=== PATIENT | male | born 1970 | race Caucasian/White ===

== ENCOUNTER 2018-03-13 13:12 | Emergency (ER) | payer OTHER ==
[~2018-03-13] VITALS: Ht 185.4 cm; Wt 83.9 kg
[~2018-03-13 13:12] MED LIST: ADVIL LIQUI-GE200 MG PO; AMITRIPTYLINE H50 MG PO; OMEPRAZOLE20 MG PO; SENNA8.6 MG PO
--- OUTSIDE RECORDS SUMMARY | 2018-03-13 13:18 | XMS ---
PreManage Notification: EMERALD VACA Security Coke Handling Supervisor Events 1 event(s) in the past 18 months Most recent security events: Elopement at [facility] 11/10/2017 17:27 - Patient eloped before treatment completed. Details: LWBS CRITERIA MET - Group Notification - [facility] - 2 Visits in 30 Days CARE PROVIDERS DEWAYNE BAIRD Current PHONE: [phone] JOHNSON MESSER Current PHONE: Unknown DEWAYNE BAIRD Primary Care Current PHONE: Unknown Heidi has no Care Guidelines for this patient. E.D. VISIT COUNT (12 MO.) [address] [place] [address] [facility] TOTAL 5 NOTE: Visits indicate total known visits. ED/UCC VISIT TRACKING (12 MO.) 03/13/2018 13:13 R[facility]DA [place] TYPE: Emergency COMPLAINT: - L FINGER LAC/INJURY 02/22/2018 12:33 [facility] [place] TYPE: Emergency COMPLAINT: - CHEST PAIN DIAGNOSES: - Adverse effect of amphetamines, initial encounter - Personal history of other infectious and parasitic diseases - Nicotine dependence, unspecified, uncomplicated - Chest pain, unspecified - Allergy status to penicillin 11/11/2017 04:03 [facility] [place] TYPE: Emergency COMPLAINT: - FEET PAIN/INJURY DIAGNOSES: - Pain in right foot - Allergy status to penicillin - Contusion of left foot, initial encounter - Activity, other involving climbing, rappelling and jumping off - Exposure to other specified factors, initial encounter - Contusion of right foot, initial encounter - Other manager terminal (current) drug therapy 11/10/2017 17:27 RICARDA Trevino TYPE: Emergency COMPLAINT: - BILATERAL HEEL/FEET PAIN DIAGNOSES: - Pain in left ankle and joints of left foot - Procedure and treatment not carried out due to patient leaving prior to being seen by health care provider - Encounter for immunization 05/10/2017 12:47 [facility] [place] [facility] TYPE: Urgent Care DIAGNOSES: - Cellulitis of right upper limb - Hand Swelling 03/28/2017 12:50 [facility] [place] TYPE: Emergency COMPLAINT: - L LEG CELLULITIS DIAGNOSES: - Cellulitis of left lower limb - Nicotine dependence, unspecified, uncomplicated INPATIENT VISIT TRACKING (12 MO.) No inpatient visits to display in this time frame [id number]
[2018-03-13] MEDS ORDERED: REMERON45 M1 PO (13:39)
== END 2018-03-13 14:35 | disposition home or self-care (01) ==
LOC: ED 13:12
PROC: 0HQGXZZ Repair Left Hand Skin, External Approach (ICD-10-PCS; principal; 2018-03-13)
DX: S61.211A Laceration without foreign body of left index finger without damage to nail, initial encounter (principal); W26.8XXA Contact with other sharp object(s), not elsewhere classified, initial encounter; Z87.891 Personal history of nicotine dependence; Z88.0 Allergy status to penicillin; Z79.899 Other long term (current) drug therapy
CPT/HCPCS: 12001; 90471; 90715; 99282-25

== ENCOUNTER 2019-07-02 13:45 | Emergency (ER) | payer SELFPAY ==
[~2019-07-02] VITALS: Ht 185.4 cm; Wt 77.1 kg
--- OUTSIDE RECORDS SUMMARY | ~2019-07-02 | XMS | Encounter Summary ---
Demographics + + + | Address | [address] | | | [place] [place] [address] | + + + | Home Phone | | + + + | Preferred Language | Unknown | + + + | Marital Status | Single | + + + | Sikhism Affiliation | Unknown | + + + | Race | Unknown | + + + | Ethnic Group | Unknown | + + + Author + + + | Author | [facility] | | | and [place] | + + + | Organization | [facility] | | | and [place] | + + + | Address | Unknown | + + + | Phone | Unavailable | + + + Support +---------+ +---------+ + | Name | Relationship | Address | Phone | +---------+ +---------+ + | Name No | ECON | Unknown | | +---------+ +---------+ + Care Team Providers + +------+ + | Care Bookkeeping Assistant Name | Role | Phone | + +------+ + PCP | Unavailable | + +------+ + Encounter Details +--------+ + + + + | Date | Type | Department | Care Team | Description | +--------+ + + + + | 04/25/ | [facility] | [facility] | Katya Ho | | | 2007 | Encounter | MED CTR XRAY [address] | MD Lashaun [address] | | | | | [place] | [address] [place] | | | | | [place] [address] | [place] [address] | | | | | [phone] | [phone] | | | | | | | | +--------+ + + + + Social History + +-------+ +--------+------+ | Tobacco Use | Types | Packs/Day | Years | Date | | | | | Used | | + +-------+ +--------+------+ | Never Assessed | | | | | + +-------+ +--------+------+ + + + | Sex Assigned at | Date Recorded | | | | + + + | Not on file | | + + + + + + + | Job Start Date | Occupation | Industry | + + + + | Not on file | Not on file | Not on file | + + + + + + + + | Travel History | Travel Start | Travel End | + + + + + + | No recent travel history available. | + + documented as of this encounter Plan of Treatment Not on filedocumented as of this encounter Visit Diagnoses Not on filedocumented in this encounter"
--- OUTSIDE RECORDS SUMMARY | ~2019-07-02 | XMS | Encounter Summary ---
Demographics + + + | Address | [address] | | | [place] [facility] [address] | + + + | Home Phone | | + + + | Preferred Language | Unknown | + + + | Marital Status | Single | + + + | Mandaen Affiliation | Unknown | + + + | Race | Unknown | + + + | Ethnic Group | Unknown | + + + Author + + + | Author | [facility] | | | and [place] | + + + | Organization | [facility] | | | [...] Team Providers + +------+ + | Care Harness And Bag Inspector Name | Role | Phone | + +------+ + PCP | Unavailable | + +------+ + Encounter Details +--------+ + + + + | Date | Type | Department | Care Team | Description | +--------+ + + + + | 03/27/ | Hospital | [facility] | Jensen [place] | | | 1991 | Encounter | MED CTR EMERGENCY | MD Júnior, [address] | | | | | CENTER [address] | [place] | | | | | [place] | [place] [address] | | | | | [address] | [phone] | | | | | [phone] | | | +--------+ + + + [...]
--- OUTSIDE RECORDS SUMMARY | ~2019-07-02 | XMS | Encounter Summary ---
Demographics + + + | Address | [address] | | | [place] [place] [address] | + + + | Home Phone | | + + + | Preferred Language | Unknown | + + + | Marital Status | Single | + + + | Mormonism Affiliation | Unknown | + + + | Race | Unknown | + + + | Ethnic Group | Unknown | + + + Author + + + | Author | [facility] | | | and [place] | + + + | Organization | [facility] | | | [...] Team Providers + +------+ + | Care Retail Account Specialist Name | Role | Phone | + +------+ + PCP | Unavailable | + +------+ + Encounter Details +--------+ + + + + | Date | Type | Department | Care Team | Description | +--------+ + + + + | 07/19/ | Hospital | [facility] | B[place]y [place] | | | 2007 | Encounter | MED CTR EMERGENCY | MD Sindi King | | | | | CENTER [address] | [place], | | | | | [place] | [place] [address] | | | | | [address] | [phone] | | | | | [phone] | | | +--------+ + + + [...]
--- OUTSIDE RECORDS SUMMARY | ~2019-07-02 | XMS | Encounter Summary ---
Demographics + + + | Address | [address] | | | [place] [facility] [address] | + + + | Home Phone | | + + + | Preferred Language | Unknown | + + + | Marital Status | Single | + + + | Anabaptist Affiliation | Unknown | + + + | Race | Unknown | + + + | Ethnic Group | Unknown | + + + Author + + + | Author | [facility] | | | and [place] | + + + | Organization | [facility] | | | and [...] Team Providers + +------+ + | Care After School Teacher Name | Role | Phone | + +------+ + PCP | Unavailable | + +------+ + Encounter Details +--------+ + + + + | Date | Type | Department | Care Team | Description | +--------+ + + + + | 12/07/ | [facility] | [facility] | Matthew Ho | | | 2004 | Encounter | MED CTR XRAY [address] | MD [address] | | | | | [place] | [place] | | | | | [place] [address] | [place] [address] | | | | | [phone] | [phone] | | | | | | | [...]
--- OUTSIDE RECORDS SUMMARY | ~2019-07-02 | XMS | Clinical Summary ---
Demographics + + + | Address | [address] | | | [place] [address] | + + + | Home Phone | | + + + | Preferred Language | Unknown | + + + | Marital Status | Single | + + + | Denominational Affiliation | Unknown | + + + | Race | Unknown | + + + | Ethnic Group | Unknown | + + + Author + + + | Author | [facility] | | | and [place] | + + + | Organization | [facility] | | | [...] Team Providers + +------+ + | Care Plastic Tile Layer Name | Role | Phone | + +------+ + | No, Physician | PCP | Unavailable | + +------+ + Allergies + + + + + + | Active Allergy | Reactions | Severity | Noted | Comments | | | | | Date | | + + + + + + | Amoxicillin | Hives | | 05/11/19 | | | | | | 18 | | + + + + + + Medications + + + +---------+------+------+-------+ | Medication | Sig | Dispensed | Refills | Star | End | Statu | | | | | | t | Date | s | | | | | | Date | | | + + + +---------+------+------+-------+ | amitriptyline | Take 200 mg by mouth | | 0 | | | Activ | | (ELAVIL) 100 MG | nightly. | | | | | e | | tablet | | | | | | | + + + +---------+------+------+-------+ | naproxen | Take 1 one tablet | 30 | 0 | 03/0 | | Activ | | (NAPROSYN) 500 mg | with food twice | tablet | | 7/20 | | e | | tabletIndications: | daily for 5 days, | | | 18 | | | | Cellulitis of right | then as needed for | | | | | | | hand | pain. | | | | | | + + + +---------+------+------+-------+ | traMADol (ULTRAM) | Take 1 tablet by | 12 | 0 | 03/0 | | Activ | | 50 mg | mouth every 8 hours | tablet | | 7/20 | | e | | tabletIndications: | as needed. | | | 18 | | | | Cellulitis of right | | | | | | | | hand | | | | | | | + + + +---------+------+------+-------+ Active Problems No known active problems Social History + +-------+ +--------+------+ | Tobacco Use | Types | Packs/Day | Years | Date | | | | | Used | | + +-------+ +--------+------+ | Current Every Day | | | | | | Smoker | | | | | + +-------+ +--------+------+ + +---+---+---+ | Smokeless Tobacco: | | | | | Never Used | | | | + +---+---+---+ + + + | Sex Assigned at [...] recent travel history available. | + + Last Filed Vital Signs + + + + + | Vital Sign | Reading | Time Taken | Comments | + + + + + | Blood Pressure | 124/84 | 05/10/2017 1:11 PM | | | | | PST | | + + + + + | Pulse | 103 | 05/10/2017 1:11 PM | | | | | PST | | + + + + + | Temperature | 36.3 C (97.4 F) | 05/10/2017 1:11 PM | | | | | PST | | + + + + + | Respiratory Rate | 16 | 05/10/2017 1:11 PM | | | | | PST | | + + + + + | Oxygen Saturation | 99% | 05/10/2017 1:11 PM | | | | | PST | | + + + + + | Inhaled Oxygen | - | - | | | Concentration | | | | + + + + + | Weight | 87.3 kg (192 lb 7.4 | 05/10/2017 1:11 PM | | | | oz) | PST | | + + + + + | Height | 185.4 cm (6' 1") | 05/10/2017 1:11 PM | | | | | PST | | + + + + + | Body Mass Index | 25.39 | 05/10/2017 1:11 PM | | | | | PST | | + + + + + Plan of Treatment + + + + + | Health Maintenance | Due Date | Last Done | Comments | + + + + + | Vaccine: | | | | | Dtap/Tdap/Td (1 - | 2 | | | | Tdap) | | | | + + + + + | Vaccine: Influenza | | | | | (Season Ended) | 0 | | | + + + + + Results Not on filefrom Last 3 Months Insurance + +--------+ +--------+ +---------+--------+ | Payer | Benefi | Subscriber | Effect | Phone | Address | Type | | | t Plan | ID | arun | | | | | | / | | Dates | | | | | | Group | | | | | | + +--------+ +--------+ +---------+--------+ | [employer] | [employer] | [id number] | 05/11/19 | [phone] | | Medica | | MEDICAID HMO | HEALTH | | 18-Pre | 1 | | id | | | MDCD | | sent | | | | | | [place]MO [place] | | | | | | + +--------+ +--------+ +---------+--------+ + +--------+ +--------+ + + | Guarantor Name | Accoun | Relation to | Date | Phone | Billing Address | | | t Type | Patient | of | | | | | | | | | | + +--------+ +--------+ + + | Mikel Kirby | Person | Self | [birth year] | [address] | | | al/Fam | | 1971 | [phone] | [place] [address] | | | dirk | | | 5 (Home) | | + +--------+ +--------+ + + Advance Directives + + + + + | Type | Date Recorded | Patient | Explanation | | | | Soda Clerk | | + + + + + | Power of | | | | | Shore Working Supervisor | | | | + + + + + | Advance | | | | | Directive | | | | + + + + +
--- OUTSIDE RECORDS SUMMARY | ~2019-07-02 | XMS | Encounter Summary ---
Demographics + + + | Address | [address] | | | [place] [address] | + + + | Home Phone | | + + + | Preferred Language | Unknown | + + + | Marital Status | Single | + + + | Gnosticism Affiliation | Unknown | + + + | Race | Unknown | + + + | Ethnic Group | Unknown | + + + Author + + + | Author | [facility] | | | and [place] | + + + | Organization | [facility] | | | and [...] Team Providers + +------+ + | Care Consulting Property Manager Name | Role | Phone | + +------+ + PCP | Unavailable | + +------+ + Encounter Details +--------+ + + + + | Date | Type | Department | Care Team | Description | +--------+ + + + + | 04/25/ | [facility] | [facility] | Katya Ho | | | 2007 | Encounter | MED CTR XRAY [address] | MD Lashaun [address] | | | | | [place] | [address] [place] | | | | | [place] [address] | [place] [address] | | | | | [phone] | [phone] | | | | | | | [...]
--- OUTSIDE RECORDS SUMMARY | ~2019-07-02 | XMS | Clinical Summary ---
Demographics + + + | Address | [address] | | | [place] [address] | + + + | Home Phone | | + + + | Preferred Language | Unknown | + + + | Marital Status | Single | + + + | Pentecostal Affiliation | Unknown | + + + | Race | Unknown | + + + | Ethnic Group | Unknown | + + + Author + + + | Author | [facility] | | | and [place] | + + + | Organization | [facility] | | | and [...] Team Providers + +------+ + | Care Well Logging Mud Analysis Captain Name | Role | Phone | + [...] | [employer] | MODA | [id number] | 05/11/19 | [phone] | | Medica [...] | 1971 | [phone] | [place] [address] | | | dirk | | | 5 (Home) | | + +--------+ +--------+ + + Advance Directives + + + + + | Type | Date Recorded | Patient | Explanation | | | | Reversing Mill Roller | | + + + + + | Power of | | | | | Equity Director | | | | + + + + + | Advance | | | | | Directive | | | | + + + + +
--- OUTSIDE RECORDS SUMMARY | ~2019-07-02 | XMS | Encounter Summary ---
Demographics + + + | Address | [address] | | | [place] [place] [place] [address] | + + + | Home Phone | | + + + | Preferred Language | Unknown | + + + | Marital Status | Single | + + + | Scientology Affiliation | Unknown | + + + | Race | Unknown | + + + | Ethnic Group | Unknown | + + + Author + + + | Author | [facility] | | | and [place] | + + + | Organization | [facility] | | [...] Team Providers + +------+ + | Care Lotus Notes Administrator Name | Role | Phone | + +------+ + PCP | Unavailable | + +------+ + Encounter Details +--------+ + + + + | Date | Type | Department | Care Team | Description | +--------+ + + + + | 11/11/ | Hospital | [facility] | | | | 1990 | Encounter | MED CTR EMERGENCY | | | | | | CENTER [address] | | | | | | [place] | | | | | | [address] | | | | | | [phone] | | | +--------+ + + + [...]
--- OUTSIDE RECORDS SUMMARY | ~2019-07-02 | XMS | Encounter Summary ---
Demographics + + + | Address | [address] | | | [place] [place] [facility] [address] | + + + | Home Phone | | + + + | Preferred Language | Unknown | + + + | Marital Status | Single | + + + | Yazidism Affiliation | Unknown | + + + | Race | Unknown | + + + | Ethnic Group | Unknown | + + + Author + + + | Author | [facility] | | | and [place] | + + + | Organization | [facility] | | | and [...] Team Providers + +------+ + | Care Assembly Inspector Name | Role | Phone | + +------+ + PCP | Unavailable | + +------+ + Encounter Details +--------+ + + + + | Date | Type | Department | Care Team | Description | +--------+ + + + + | 11/03/ | Hospital | [facility] | | | | 2005 | Encounter | MED CTR XRAY [address] | | | | | | [place] | | | | | | [place] [address] | | | | | | [phone] | | | +--------+ + + + [...]
--- OUTSIDE RECORDS SUMMARY | ~2019-07-02 | XMS | Encounter Summary ---
Demographics + + + | Address | [address] | | | [place] [facility] [place] [address] | + + + | Home Phone | | + + + | Preferred Language | Unknown | + + + | Marital Status | Single | + + + | Buddhist Affiliation | Unknown | + + + [...] Team Providers + +------+ + | Care Cosmetologist Apprentice Name | Role | Phone | + +------+ + PCP | Unavailable | + +------+ + Encounter Details +--------+ + + + + | Date | Type | Department | Care Team | Description | +--------+ + + + + | 06/26/ | [facility] | [facility] | Paul Cummins | | | 2006 | Encounter | MED CTR EMERGENCY | MD [address] | | | | | CENTER [address] | [place] | | | | | [place] | [place] [address] | | | | | [address] | [phone] | | | | | [phone] | | | +--------+ + + + [...]
--- OUTSIDE RECORDS SUMMARY | ~2019-07-02 | XMS | Encounter Summary ---
Demographics + + + | Address | [address] | | | [place] [address] | + + + | Home Phone | | + + + | Preferred Language | Unknown | + + + | Marital Status | Single | + + + | Confucianist Affiliation | Unknown | + + + [...] Team Providers + +------+ + | Care Caustic Mixer Name | Role | Phone | + +------+ + PCP | Unavailable | + +------+ + Encounter Details +--------+ + + + + | Date | Type | Department | Care Team | Description | +--------+ + + + + | 02/03/ | [facility] | [facility] | Mattehw Ho | | | 2004 | Encounter | MED CTR XRAY [address] | [address] | | | | | [place] | [place] | | | | | [place] [address] | [place] [address] | | | | | [phone] | [phone] | | | | | | | [...]
--- OUTSIDE RECORDS SUMMARY | ~2019-07-02 | XMS | Encounter Summary ---
Demographics + + + | Address | [address] | | | [place] [address] | + + + | Home Phone | | + + + | Preferred Language | Unknown | + + + | Marital Status | Single | + + + | Jain Affiliation | Unknown | + + + | Race | Unknown | + + + | Ethnic Group | Unknown | + + + Author + + + | Author | [facility] | | | and [place] | + + + | Organization | [facility] | | [...] Team Providers + +------+ + | Care Liberal Arts Teacher Name | Role | Phone | + +------+ + PCP | Unavailable | + +------+ + Encounter Details +--------+ + + + + | Date | Type | Department | Care Team | Description | +--------+ + + + + | 11/11/ | Hospital | [facility] | | | | 1990 | Encounter | MED CTR EMERGENCY | | | | | | CENTER [address] | | | | | | [place] | | | | | | [address] | | | | | | [phone] | | | +--------+ + + + [...]
--- OUTSIDE RECORDS SUMMARY | ~2019-07-02 | XMS | Encounter Summary ---
Demographics + + + | Address | [address] | | | [place] [address] | + + + | Home Phone | | + + + | Preferred Language | Unknown | + + + | Marital Status | Single | + + + | Christian Affiliation | Unknown | + + + | Race | Unknown | + + + | Ethnic Group | Unknown | + + + Author + + + | Author | [facility] | | | and [place] | + + + | Organization | [facility] | | | [...] Team Providers + +------+ + | Care Aircraft Skin Burnisher Name | Role | Phone | + +------+ + PCP | Unavailable | + +------+ + Encounter Details +--------+ + + + + | Date | Type | Department | Care Team | Description | +--------+ + + + + | 08/02/ | Hospital | [facility] | | | | 2007 | Encounter | MED CTR EMERGENCY | | | | | | CENTER [address] | | | | | | [place] | | | | | | [address] | | | | | | [phone] | | | +--------+ + + + [...]
--- OUTSIDE RECORDS SUMMARY | ~2019-07-02 | XMS | Encounter Summary ---
Demographics + + + | Address | [address] | | | [place] [place] [address] | + + + | Home Phone | | + + + | Preferred Language | Unknown | + + + | Marital Status | Single | + + + | Baptist Affiliation | Unknown | + + + | Race | Unknown | + + + | Ethnic Group | Unknown | + + + Author + + + | Author | [facility] | | | and [place] | + + + | Organization | [facility] | | | [...] Team Providers + +------+ + | Care Human Resources Receptionist Name | Role | Phone | + [...] + + | 05/10/ | Office | [facility] | Fabien Dawn | Cellulitis of right | | 2018 | Visit | CARE [address] | MD Sixto [address] | hand (Primary Dx) | | | | [place] | [address] | | | | | [address] | [address] | | | | | [phone] | | | +--------+---------+ + + + [...] or wheezing, stop Keflex and report to [facility] emergency room. Take Naprosyn 500 mg, [...] 2 days on antibiotics Date Last Reviewed: 11/05/201519990345-9884 [employer]. [address] [place] [address]. All righ ts reserved. This information is [...] Pt tolerated well. Paula Ennis RN Kane, Jsutine Hensno MD - 05/10/2017 12:45 PM PSTFormatting of [...] or wheezing, stop Keflex and report to [facility] emergency room. Take Naprosyn 500 mg, [...] The note may have been dictated using [employer] voice recognition software. It may have not [...] starting 3 days ago. 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 He [...]
--- OUTSIDE RECORDS SUMMARY | ~2019-07-02 | XMS | Encounter Summary ---
Demographics + + + | Address | [address] | | | [place] [facility] [address] | + + + | Home Phone [...] Author + + + | Author | [facility] | | | and [place] | + + + | Organization | [facility] | | | and [...] Team Providers + +------+ + | Care Food Clerk Name | Role | Phone | + +------+ + PCP | Unavailable | + +------+ + Encounter Details +--------+ + + + + | Date | Type | Department | Care Team | Description | +--------+ + + + + | 06/26/ | [facility] | [facility] | Paul Cummins | | | 2006 | Encounter | MED CTR EMERGENCY | MD [address] | | | | | CENTER [address] | [place] | | | | | [place] | [place] [address] | | | | | [address] | [phone] | | | | | [phone] | | | +--------+ + + + [...]
--- OUTSIDE RECORDS SUMMARY | ~2019-07-02 | XMS | Encounter Summary ---
Demographics + + + | Address | [address] | | | [place] [address] | + + + | Home Phone | | + + + | Preferred Language | Unknown | + + + | Marital Status | Single | + + + | Anabaptism Affiliation | Unknown | + + + | Race | Unknown | + + + | Ethnic Group | Unknown | + + + Author + + + | Author | [facility] | | | and [place] | + + + | Organization | [facility] | | [...] Team Providers + +------+ + | Care High Court Justice Name | Role | Phone | + +------+ + PCP | Unavailable | + +------+ + Encounter Details +--------+ + + + + | Date | Type | Department | Care Team | Description | +--------+ + + + + | 08/02/ | Hospital | [facility] | | | | 2007 | Encounter | MED CTR EMERGENCY | | | | | | CENTER [address] | | | | | | [place] | | | | | | [address] | | | | | | [phone] | | | +--------+ + + + [...]
--- OUTSIDE RECORDS SUMMARY | ~2019-07-02 | XMS | Encounter Summary ---
Demographics + + + | Address | [address] | | | [place] [address] | + + + | Home Phone | | + + + | Preferred Language | Unknown | + + + | Marital Status | Single | + + + | Orthodox Affiliation | Unknown | + + [...] Team Providers + +------+ + | Care Vending Machine Refiller Name | Role | Phone | + +------+ + PCP | Unavailable | + +------+ + Encounter Details +--------+ + + + + | Date | Type | Department | Care Team | Description | +--------+ + + + + | 09/04/ | Hospital | [facility] | Betsy Middleton | | | 2007 | Encounter | MED CTR EMERGENCY | MD Sindi King | | | | | CENTER [address] | [place], | | | | | [place] | [place] [address] | | | | | [address] | [phone] | | | | | [phone] | | | +--------+ + + + [...]
--- OUTSIDE RECORDS SUMMARY | ~2019-07-02 | XMS | Encounter Summary ---
Demographics + + + | Address | [address] | | | [place] [address] | + + + | Home Phone | | + + + | Preferred Language | Unknown | + + + | Marital Status | Single | + + + | Rastafari Affiliation | Unknown | + + + | Race | Unknown | + + + | Ethnic Group | Unknown | + + + Author + + + | Author | [facility] | | | and [place] | + + + | Organization | [facility] | | | and [place] | + + + | Address | Unknown | + + + | Phone | Unavailable | + + + Support +---------+ +---------+ + | Name | Relationship | Address | Phone | +---------+ +---------+ + | Name No | ECON | Unknown | | +---------+ +---------+ + Care Team Providers + +------+ + | Care Rn Testing Name | Role | Phone | + +------+ + PCP | Unavailable | + +------+ + Encounter Details +--------+ + + + + | Date | Type | Department | Care Team | Description | +--------+ + + + + | 11/15/ | Hospital | [facility] | [place], | | | 2007 | Encounter | MED CTR EMERGENCY | Chandler James MD [address] | | | | | CENTER [address] | [place] | | | | | [place] | [place] [address] | | | | | [address] | [phone] | | | | | [phone] | | | +--------+ + + + [...]
--- OUTSIDE RECORDS SUMMARY | ~2019-07-02 | XMS | Encounter Summary ---
Demographics + + + | Address | [address] | | | [place] [place] [address] | + + + | Home Phone | | + + + | Preferred Language | Unknown | + + + | Marital Status | Single | + + + | Rastafarian Affiliation | Unknown | + + + | Race | Unknown | + + + | Ethnic Group | Unknown | + + + Author + + + | Author | [facility] | | | and [place] | + + + | Organization | [facility] | | | [...] Team Providers + +------+ + | Care Dry Folder Cloth Name | Role | Phone | + +------+ + PCP | Unavailable | + +------+ + Encounter Details +--------+ + + + + | Date | Type | Department | Care Team | Description | +--------+ + + + + | 11/03/ | Hospital | [facility] | | | | 2005 | Encounter | MED CTR XRAY [address] | | | | | | [place] | | | | | | [place] [address] | | | | | | [phone] | | | +--------+ + + + [...]
--- OUTSIDE RECORDS SUMMARY | ~2019-07-02 | XMS | Encounter Summary ---
Demographics + + + | Address | [address] | | | [place] [facility] [place] [address] | + + + | Home Phone | | + + + | Preferred Language | Unknown | + + + | Marital Status | Single | + + + | Bahai Affiliation | Unknown | + + + | Race | Unknown | + + + | Ethnic Group | Unknown | + + + Author + + + | Author | [facility] | | | and [place] | + + + | Organization | [facility] | | [...] Team Providers + +------+ + | Care Maintenance Plumber Name | Role | Phone | + +------+ + PCP | Unavailable | + +------+ + Encounter Details +--------+ + + + + | Date | Type | Department | Care Team | Description | +--------+ + + + + | 02/03/ | [facility] | [facility] | Matthew Ho | | | 2004 | Encounter | MED CTR XRAY [address] | MD [address] | | | | | [place] | [place] | | | | | [place] [address] | [place] [id number] | | | | | [phone] | [phone] | | | | | | | [...]
--- OUTSIDE RECORDS SUMMARY | ~2019-07-02 | XMS | Encounter Summary ---
Demographics + + + | Address | [address] | | | [place] [facility] [place] [address] | + + + | Home Phone | | + + + | Preferred Language | Unknown | + + + | Marital Status | Single | + + + | Sabianism Affiliation | Unknown | + + + [...] Team Providers + +------+ + | Care Workshop Manager Name | Role | Phone | + +------+ + PCP | Unavailable | + +------+ + Encounter Details +--------+ + + + + | Date | Type | Department | Care Team | Description | +--------+ + + + + | 12/07/ | [facility] | [facility] | Matthew Ho | | | 2004 | Encounter | MED CTR XRAY [address] | MD [address] | | | | | [place] | [place] | | | | | [place] [address] | [place] [address] | | | | | [phone] | [phone] | | | | | | | [...]
--- OUTSIDE RECORDS SUMMARY | ~2019-07-02 | XMS | Encounter Summary ---
Demographics + + + | Address | [address] | | | [place] [place] [address] | + + + | Home Phone | | + + + | Preferred Language | Unknown | + + + | Marital Status | Single | + + + | Mu-Ism Affiliation | Unknown | + + + | Race | Unknown | + + + | Ethnic Group | Unknown | + + + Author + + + | Author | [facility] | | | and [place] | + + + | Organization | [facility] | | | [...] Providers + +------+ + | Care Retail Loan Officer Name | Role | Phone | + [...] + + | 05/10/ | Office | [facility] | Fabien Dawn | Cellulitis of right | | 2018 | Visit | CARE [address] | MD Sixto [address] | hand (Primary Dx) | | | | [place] | [address] [place] | | | | | [address] | [address] | | | | | [phone] | | | +--------+---------+ + + + [...] or wheezing, stop Keflex and report to [facility] emergency room. Take Naprosyn 500 mg, [...] 2 days on antibiotics Date Last Reviewed: 11/05/201519995963-2108 [employer]. [address] [place] [address]. All righ ts reserved. This information is [...] or wheezing, stop Keflex and report to [facility] emergency room. Take Naprosyn 500 mg, [...] The note may have been dictated using [employer] voice recognition software. It may have not [...] starting 3 days ago. 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 He [...]
--- OUTSIDE RECORDS SUMMARY | ~2019-07-02 | XMS | Encounter Summary ---
Demographics + + + | Address | [address] | | | [place] [place] [address] | + + + | Home Phone | | + + + | Preferred Language | Unknown | + + + | Marital Status | Single | + + + | Sabianist Affiliation | Unknown | + + + | Race | Unknown | + + + | Ethnic Group | Unknown | + + + Author + + + | Author | [facility] | | | and [place] | + + + | Organization | [facility] | | | [...] Team Providers + +------+ + | Care Land Economist Name | Role | Phone | + +------+ + PCP | Unavailable | + +------+ + Encounter Details +--------+ + + + + | Date | Type | Department | Care Team | Description | +--------+ + + + + | 02/16/ | Hospital | [facility] | Betsy Middleton | | | 2007 | Encounter | MED CTR EMERGENCY | MD Sindi King | | | | | CENTER [address] | [place], | | | | | [place] | [place] [address] | | | | | [address] | [phone] | | | | | [phone] | | | +--------+ + + + [...]
--- OUTSIDE RECORDS SUMMARY | ~2019-07-02 | XMS | Encounter Summary ---
Demographics + + + | Address | [address] | | | [place] [address] | + + + | Home Phone [...] + | Author | [facility] | | | and [place] | + + + | Organization | [facility] | | | and [...] Team Providers + +------+ + | Care Hot Air Furnace Installer And Repairer Name | Role | Phone | + +------+ + PCP | Unavailable | + +------+ + Encounter Details +--------+ + + + + | Date | Type | Department | Care Team | Description | +--------+ + + + + | 11/15/ | Hospital | [facility] | [place], | | | 2007 | Encounter | MED CTR EMERGENCY | Chandler James MD [address] | | | | | CENTER [address] | [place] | | | | | [place] | [place] [address] | | | | | [address] | [phone] | | | | | [phone] | | | +--------+ + + + [...]
--- OUTSIDE RECORDS SUMMARY | ~2019-07-02 | XMS | Encounter Summary ---
Demographics + + + | Address | [address] | | | [place] [address] | + + + | Home Phone | | + + + | Preferred Language | Unknown | + + + | Marital Status | Single | + + + | Alevism Affiliation | Unknown | + + + [...] Team Providers + +------+ + | Care Configuration Management Consultant Name | Role | Phone | + +------+ + PCP | Unavailable | + +------+ + Encounter Details +--------+ + + + + | Date | Type | Department | Care Team | Description | +--------+ + + + + | 09/04/ | Hospital | [facility] | Betsy Middleton | | | 2007 | Encounter | MED CTR EMERGENCY | MD Sindi King | | | | | CENTER [address] | [place], | | | | | [place] | [place] [address] | | | | | [address] | [phone] | | | | | [phone] | | | +--------+ + + + [...]
--- OUTSIDE RECORDS SUMMARY | ~2019-07-02 | XMS | Encounter Summary ---
Demographics + + + | Address | [address] | | | [place] [facility] [address] | + + + | Home Phone | | + + + | Preferred Language | Unknown | + + + | Marital Status | Single | + + + | Mandaeism Affiliation | Unknown | + + + [...] Team Providers + +------+ + | Care Driver Salesman Name | Role | Phone | + +------+ + PCP | Unavailable | + +------+ + Encounter Details +--------+ + + + + | Date | Type | Department | Care Team | Description | +--------+ + + + + | 02/16/ | Hospital | [facility] | Betsy Middleton | | | 2007 | Encounter | MED CTR EMERGENCY | MD Sindi King | | | | | CENTER [address] | [place], | | | | | [place] | [place] [address] | | | | | [address] | [phone] | | | | | [phone] | | | +--------+ + + + [...]
--- OUTSIDE RECORDS SUMMARY | ~2019-07-02 | XMS | Encounter Summary ---
Demographics + + + | Address | [address] | | | [place] [address] | + + + | Home Phone [...] + + + | Author | [facility] | | | and [place] | + + + | Organization | [facility] | | | and [...] Team Providers + +------+ + | Care Group Cio Name | Role | Phone | + +------+ + PCP | Unavailable | + +------+ + Encounter Details +--------+ + + + + | Date | Type | Department | Care Team | Description | +--------+ + + + + | 07/13/ | Hospital | [facility] | | | | 1992 | Encounter | MED CTR EMERGENCY | | | | | | CENTER [address] | | | | | | [place] | | | | | | [address] | | | | | | [phone] | | | +--------+ + + + [...]
--- OUTSIDE RECORDS SUMMARY | ~2019-07-02 | XMS | Encounter Summary ---
Demographics + + + | Address | [address] | | | [place] [facility] [facility] [address] | + + + | Home Phone | | + + + | Preferred Language | Unknown | + + + | Marital Status | Single | + + + | Worship Affiliation | Unknown | + + + [...] Team Providers + +------+ + | Care Director Of Industrial Relations Name | Role | Phone | + +------+ + PCP | Unavailable | + +------+ + Encounter Details +--------+ + + + + | Date | Type | Department | Care Team | Description | +--------+ + + + + | 07/19/ | Hospital | [facility] | Betsy Middleton | | | 2007 | Encounter | MED CTR EMERGENCY | MD Sindi King | | | | | CENTER [address] | [place], | | | | | [place] | [place] [address] | | | | | [address] | [phone] | | | | | [phone] | | | +--------+ + + + [...]
--- OUTSIDE RECORDS SUMMARY | ~2019-07-02 | XMS | Encounter Summary ---
Demographics + + + | Address | [address] | | | [place] [facility] [address] | + + + | Home Phone | | + + + | Preferred Language | Unknown | + + + | Marital Status | Single | + + + | Taoist Affiliation | Unknown | + + + | Race | Unknown | + + + | Ethnic Group | Unknown | + + + Author + + + | Author | [facility] | | | and [place] | + + + | Organization | [facility] | | [...] Team Providers + +------+ + | Care Crankshaft Balancer Name | Role | Phone | + +------+ + PCP | Unavailable | + +------+ + Encounter Details +--------+ + + + + | Date | Type | Department | Care Team | Description | +--------+ + + + + | 07/13/ | Hospital | [facility] | | | | 1992 | Encounter | MED CTR EMERGENCY | | | | | | CENTER [address] | | | | | | [place] | | | | | | [address] | | | | | | [phone] | | | +--------+ + + + [...]
--- OUTSIDE RECORDS SUMMARY | ~2019-07-02 | XMS | Encounter Summary ---
Demographics + + + | Address | [address] | | | [place] [address] | + + + | Home Phone | | + + + | Preferred Language | Unknown | + + + | Marital Status | Single | + + + | Holiness Affiliation | Unknown | + + + | Race | Unknown | + + + | Ethnic Group | Unknown | + + + Author + + + | Author | [facility] | | | and [place] | + + + | Organization | [facility] | | | [...] Team Providers + +------+ + | Care Hose Builder Name | Role | Phone | + +------+ + PCP | Unavailable | + +------+ + Encounter Details +--------+ + + + + | Date | Type | Department | Care Team | Description | +--------+ + + + + | 03/27/ | Hospital | [facility] | Jensen Wood | | | 1991 | Encounter | MED CTR EMERGENCY | MD Júnior[address] | | | | | CENTER [address] | [place] | | | | | [place] | [place] [address] | | | | | [address] | [phone] | | | | | [phone] | | | +--------+ + + + [...]
[~2019-07-02 13:45] MED LIST changes: +REMERON45 M1 PO
--- OUTSIDE RECORDS SUMMARY | 2019-07-02 13:48 | XMS ---
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 Care History Medical/Surgical 03/14/2018 [facility] - W CALLED PATIENT 2X LEFT A VOICEMAIL. - PATIENT NEEDS TO APPLY FOR MEDICAL BENEFITS- PLEASE CONTACT MARYAN EXT [phone] TO HAVE PATIENT APPLY FOR BENEFITS. - PATIENT DOES NOT HAVE A PCP - PLEASE REFER PATIENT TO [facility] FOR FOLLOW UP - TO ESTABLISH CARE. - W SENT NO PCP LETTER TO PATIENT. E.D. VISIT COUNT (12 MO.) 1 RICARDA Plata TOTAL 1 NOTE: Visits indicate total known visits. ED/UCC VISIT TRACKING (12 MO.) 07/02/2019 13:46 [facility]DA [place] TYPE: Emergency COMPLAINT: - RT FINGER INJURY INPATIENT VISIT TRACKING (12 MO.) No inpatient visits to display in this time frame [id number]
== END 2019-07-02 15:11 | disposition home or self-care (01) ==
LOC: ED 13:45
DX: S68.126A Partial traumatic metacarpophalangeal amputation of right little finger, initial encounter (principal); Z87.891 Personal history of nicotine dependence; Z88.1 Allergy status to other antibiotic agents; W45.8XXA Other foreign body or object entering through skin, initial encounter
CPT/HCPCS: 64450; 73140; 99283-25

== ENCOUNTER 2019-08-10 07:53 | Emergency (ER) | payer SELFPAY ==
[~2019-08-10] VITALS: Ht 185.4 cm; Wt 82.5 kg
--- OUTSIDE RECORDS SUMMARY | ~2019-08-10 | XMS | Encounter Summary ---
Demographics + + + | Address | [address] | | | [place] [address] | + + + | Home Phone | | + + + | Preferred Language | Unknown | + + + | Marital Status | Single | + + + | Hindu Affiliation | Unknown | + + + | Race | Unknown | + + + | Ethnic Group | Unknown | + + + Author + + + | Author | [facility] | | | and [place] | + + + | Organization | [facility] | | [...] Team Providers + +------+ + | Care Cognos Report Developer Name | Role | Phone | + +------+ + PCP | Unavailable | + +------+ + Encounter Details +--------+ + + + + | Date | Type | Department | Care Team | Description | +--------+ + + + + | 09/04/ | Hospital | [facility] | Betsy Middleton | | | 2007 | Encounter | MED CTR EMERGENCY | MD Sindi King | | | | | CENTER [address] | [place], | | | | | [place] | [place] [address] | | | | | [address] | [phone] | | | | | [phone] | | | +--------+ + + + [...]
--- OUTSIDE RECORDS SUMMARY | ~2019-08-10 | XMS | Encounter Summary ---
Demographics + + + | Address | [address] | | | [place] [address] | + + + | Home Phone | | + + + | Preferred Language | Unknown | + + + | Marital Status | Single | + + + | Voodoo Affiliation | Unknown | + + + | Race | Unknown | + + + | Ethnic Group | Unknown | + + + Author + + + | Author | [facility] | | | and [place] | + + + | Organization | [facility] | | | and [...] Team Providers + +------+ + | Care Hide Stretcher Hand Name | Role | Phone | + +------+ + PCP | Unavailable | + +------+ + Encounter Details +--------+ + + + + | Date | Type | Department | Care Team | Description | +--------+ + + + + | 07/13/ | Hospital | [facility] | | | | 1992 | Encounter | MED CTR EMERGENCY | | | | | | CENTER [address] | | | | | | [place] | | | | | | [address] | | | | | | [phone] | | | +--------+ + + + [...]
--- OUTSIDE RECORDS SUMMARY | ~2019-08-10 | XMS | Encounter Summary ---
Demographics + + + | Address | [address] | | | [place] [address] | + + + | Home Phone | | + + + | Preferred Language | Unknown | + + + | Marital Status | Single | + + + | Jehovah'S Witness Affiliation | Unknown | + + + | Race | Unknown | + + + | Ethnic Group | Unknown | + + + Author + + + | Author | [facility] | | | and [place] | + + + | Organization | [facility] | | | [...] Team Providers + +------+ + | Care Cabinet Assembler Name | Role | Phone | + +------+ + PCP | Unavailable | + +------+ + Encounter Details +--------+ + + + + | Date | Type | Department | Care Team | Description | +--------+ + + + + | 03/27/ | Hospital | [facility] | Jensen Wood | | | 1991 | Encounter | MED CTR EMERGENCY | MD Júnior, [address] | | | | | CENTER [address] | [place] | | | | | [place] | [place] [address] | | | | | [address] | [phone] | | | | | [phone] | | | +--------+ + + + [...]
--- OUTSIDE RECORDS SUMMARY | ~2019-08-10 | XMS | Encounter Summary ---
Demographics + + + | Address | [address] | | | [place] [address] | + + + | Home Phone | | + + + | Preferred Language | Unknown | + + + | Marital Status | Single | + + + | Druze Affiliation | Unknown | + + + [...] Team Providers + +------+ + | Care Arson Investigator Name | Role | Phone | + +------+ + PCP | Unavailable | + +------+ + Encounter Details +--------+ + + + + | Date | Type | Department | Care Team | Description | +--------+ + + + + | 04/25/ | [facility] | [facility] | Katya Ho | | | 2007 | Encounter | MED CTR XRAY [address] | MD [address] | | | | | [place] | [address] [place] | | | | | [place] [address] | [place] [address] | | | | | [phone] | [phone] | | | | | | | [...]
--- OUTSIDE RECORDS SUMMARY | ~2019-08-10 | XMS | Encounter Summary ---
Demographics + + + | Address | [address] | | | [place] [address] | + + + | Home Phone | | + + + | Preferred Language | Unknown | + + + | Marital Status | Single | + + + | Rastafari Affiliation | Unknown | + + + | Race | Unknown | + + + | Ethnic Group | Unknown | + + + Author + + + | Author | [facility] | | | and [place] | + + + | Organization | [facility] | | | [...] Team Providers + +------+ + | Care Records Management Engineer Name | Role | Phone | + +------+ + | No, Physician | PCP | Unavailable | + +------+ + Reason for Visit + + + | Reason | Comments | + + + | Hand Swelling | room 2/ right hand x 3 days | + + + Encounter Details +--------+---------+ + + + | Date | Type | Department | Care Team | Description | +--------+---------+ + + + | 05/10/ | Office | [facility] | Fabien Dawn | Cellulitis of right | | 2018 | Visit | CARE [address] | MD Sixto [address] | hand (Primary Dx) | | | | [place] | [place] [place] | | | | | [address] | [address] | | | | | [phone] | | | +--------+---------+ + + + Social History + +-------+ [...] + + documented as of this encounter Last Filed Vital Signs + + + [...] | | + + + + + documented in this encounter Patient Instructions Patient Instructions Fabien Dawn MD - 05/10/2017 12:45 PM PSTRocephin shot was pr ovided for infection. Take Keflex 500 mg 4 times daily for 10 days for skin infection. If you develop an itchy rash, hives, lip swelling or wheezing, stop Keflex and report to [facility] emergency room. Take Naprosyn 500 mg, 1 tablet with food twice daily for 5 days, then as needed for pain an d swelling. Take tramadol 50 mg, one tablet up to 3 times daily as needed for breakthrough pain. The right hand and arm above the level of your heart as needed for pain and swelling. Use warm, moist compresses on the hand and forearm for 15 minutes at a time 3 times daily u ntil improved. Stay home from work avoiding repetitive gripping, grasping and lifting with the right hand until symptoms have resolved. Return for reevaluation of your hand and forearm tomorrow. Report to emergency room if he developed progressive pain, redness, swelling, nausea, vomit ing or other new rapidly progressive associated symptoms. Cellulitis Cellulitis is an infection of the deep layers of skin. A break in the skin, such as a cut o r scratch, can let bacteria under the skin. If the bacteria get to deep layers of the skin, it can be serious. If not treated, cellulitis can get into the bloodstream and lymph nodes. The infection can then spread throughout the body. This causes serious illness. Cellulitis causes the affected skin to become red, swollen, warm, and sore. The reddened ar eas have a visible border. An open sore may leak fluid (pus). You may have a fever, chills, and pain. Cellulitis is treated with antibiotics taken for 7 to 10 days. An open sore may be cleaned and covered with cool wet gauze. Symptoms should get better 1 to 2 days after treatment is s tarted. Make sure to take all the antibiotics for the full number of days until they are jessica e. Keep taking the medicine even if your symptoms go away. Home care Follow these tips: Limit the use of the part of your body with cellulitis. If the infection is on your leg, keep your leg raised while sitting. This will help to r educe swelling. Take all of the antibiotic medicine exactly as directed until it is gone. Do not miss an y doses, especially during the first 7 days. Don t stop taking the medicine when your symp toms get better. Keep the affected area clean and dry. Wash your hands with soap and warm water before and after touching your skin. Anyone els e who touches your skin should also wash his or her hands. Don't share towels. Follow-up care Follow up with your healthcare provider, or as advised. If your infection does not go away on the first antibiotic, your healthcare provider will prescribe a different one. When to seek medical advice Call your healthcare provider right away if any of these occur: Red areas that spread Swelling or pain that gets worse Fluid leaking from the skin (pus) Fever higher of 100.4 F (38.0 C) or higher after 2 days on antibiotics Date Last Reviewed: 11/05/201519992609-8179 [employer]. [address] [place] [address]. All righ ts reserved. This information is not intended as a substitute for professional medical care. Always follow your healthcare professional's instructions. documented in this encounter Progress Notes Paula Ennis RN - 05/10/2017 12:45 PM PST Administrations This Visit cefTRIAXone (ROCEPHIN) injection 1 g Admin Date 05/10/2017 Action Given Dose 1 g Route Intramuscular Administered By Paula Ennis RN lidocaine 1% injection 2.1 mL Admin Date 05/10/2017 Action Given Dose 2.1 mL Route Intramuscular Administered By Paula Ennis RN Pt tolerated well. Paula Ennis RN Kane, Justine Henson MD - 05/10/2017 12:45 PM PSTFormatting of this note might be different from the origina l. 05/10/2017 Mikel Kirby 1970 Assessment: 1. Cellulitis of right hand cefTRIAXone (ROCEPHIN) injection 1 g lidocaine 1% injection 2.1 mL naproxen (NAPROSYN) 500 mg tablet traMADol (ULTRAM) 50 mg tablet cephalexin (KEFLEX) 500 mg capsule Three-day history of progressive cellulitis on the back of the right hand associated with m ultiple small abrasions on the hand, a new tattoo on the right forearm placed 10 days ago. No evidence of septic arthritis or systemic symptoms. He agrees with treatment with IM Roce phin after discussing the risks and benefits given his penicillin allergy. We discussed the option of starting oral clindamycin or waiting for intravenous dose of alternative antibiot ic. He opted for the Rocephin IM. He was given the following instructions, prescriptions a nd a note for work. Follow-up here tomorrow is anticipated. Plan: Rocephin shot was provided for infection. Take Keflex 500 mg 4 times daily for 10 days for skin infection. If you develop an itchy rash, hives, lip swelling or wheezing, stop Keflex and report to [facility] emergency room. Take Naprosyn 500 mg, 1 tablet with food twice daily for 5 days, then as needed for pain an d swelling. Take tramadol 50 mg, one tablet up to 3 times daily as needed for breakthrough pain. The right hand and arm above the level of your heart as needed for pain and swelling. Use warm, moist compresses on the hand and forearm for 15 minutes at a time 3 times daily u ntil improved. Stay home from work avoiding repetitive gripping, grasping and lifting with the right hand until symptoms have resolved. Return for reevaluation of your hand and forearm tomorrow. Report to emergency room if he developed progressive pain, redness, swelling, nausea, vomit ing or other new rapidly progressive associated symptoms. The risks and benefits, including potential side effects of medication changes, have been d iscussed with the patient. We agreed on implementing the current plan. The note may have been dictated using [employer] voice recognition software. It may have not b een proofread in entirety. Minor errors in grammar may occur. History: Chief Complaint Patient presents with Hand Swelling room 2/ right hand x 3 days Mikel Kirby is a 47 y.o. male here for painful redness and swelling on the back of h is right hand extending onto his forearm starting 3 days ago. 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 He had a tattoo placed on the vol ar aspect of his right forearm 10 days ago which has been without redness, swelling and drai nage. He had difficulty sleeping last night applying warm compress and elevating his arm. He went to work today and cannot due to pain with use of the hand and arm. Denies other inj ury to the right hand, no history of trauma. History of cellulitis of the left lower leg one month ago treated at [facility] with resolution, doesn't recall the antibiotic. He denies fever but feels intermittent chills. Mild nausea without vomiting. He has eaten to day with normal bowel movement. No history of diabetes mellitus or MRSA infection. Current medications, past medical, surgical, family and social histories were reviewed and updated where appropriate. Allergies Allergen Reactions Amoxicillin Hives Physical Exam: BP 124/84 | Pulse 103 | Temp 36.3 C (97.4 F) (Temporal) | Resp 16 | Ht 1.854 m (6' 1") | Wt 87.3 kg (192 lb 7.4 oz) | SpO2 99% | BMI 25.39 kg/m General: Well appearing, middle-aged male in no distress and appears stated age. Skin: Multiple, small, scabbed abrasions on multiple fingers and the back of his right hand . No pustules, fluctuance or purulent drainage. Fingers are callused. Diffusely erythemat ous, tender, warm and edematous skin on back of his hand without fluctuance or ecchymosis. Mild erythema extends onto the dorsal aspect of the wrist and forearm with several small fol licular pustules noted on the proximal forearm. Again, no fluctuance or drainage. New tatt oo noted on the proximal, volar forearm without inflammation or drainage. Musculoskeletal: Opens and closes the fist completely with minimal pain. Normal finger spl ay. Range of motion of the right wrist and elbow are complete with minimal discomfort. Lymphatic: Perhaps mild lymphangitis on the dorsum of the right forearm. No antecubital or axillary adenopathy. Neurovascular: Intact radial pulses. Light touch sensation and capillary refill intact thr oughout the right hand. Fabien Dawn M.D. documented in is encounter Plan of Treatment Not on filedocumented as of this encounter Visit Diagnoses + + | Diagnosis | + + | Cellulitis of right hand - Primary Cellulitis and abscess of hand, except fingers and | | thumb | + + documented in this encounter Administered Medications + +--------+ +------+------+ + | Medication Order | MAR | Action | Dose | Rate | Site | | | Action | Date | | | | + +--------+ +------+------+ + | cefTRIAXone (ROCEPHIN) | Given | 05/11/19 | 1 g | | Ventrogl | | injection 1 g 1 g, | | 18 2:15 | | | uteal-Le | | Intramuscular, ONCE, 05/10/17 | | PM PST | | | ft | | at 1430, For 1 dose, MIX WITH 2.1 | | | | | | | ML LIDOCAINE, Indications: | | | | | | | PURULENT SKIN AND SOFT TISSUE | | | | | | | INFECTION | | | | | | + +--------+ +------+------+ + +---+---+ | | | +---+---+ + +-------+ +---------+---+ + | lidocaine 1% injection 2.1 mL | Given | 05/11/19 | 2.1 mLs | | Ventrogl | | 2.1 mL, Intramuscular, ONCE, Wed | | 18 2:18 | | | uteal-Le | | 05/10/17 at 1430, For 1 dose | | PM PST | | | ft | + +-------+ +---------+---+ + +---+---+ | | | +---+---+ documented in this encounter
--- OUTSIDE RECORDS SUMMARY | ~2019-08-10 | XMS | Encounter Summary ---
Demographics + + + | Address | [address] | | | [place] [address] | + + + | Home Phone | | + + + | Preferred Language | Unknown | + + + | Marital Status | Single | + + + | Sabianist Affiliation | Unknown | + + + | Race | Unknown | + + + | Ethnic Group | Unknown | + + + Author + + + | Author | [facility] | | | and [place] | + + + | Organization | [facility] | | [...] Team Providers + +------+ + | Care Hedge Fund Trader Name | Role | Phone | + +------+ + PCP | Unavailable | + +------+ + Encounter Details +--------+ + + + + | Date | Type | Department | Care Team | Description | +--------+ + + + + | 03/27/ | Hospital | [facility] | Jensen Wood | | | 1991 | Encounter | MED CTR EMERGENCY | MD Júnior, FACS [address] | | | | | CENTER [address] | [place] | | | | | [place] | [place] [id number] | | | | | [address] | [phone] | | | | | [phone] | | | +--------+ + + + [...]
--- OUTSIDE RECORDS SUMMARY | ~2019-08-10 | XMS | Encounter Summary ---
Demographics + + + | Address | [address] | | | [place] [address] | + + + | Home Phone | | + + + | Preferred Language | Unknown | + + + | Marital Status | Single | + + + | Latter Day Affiliation | Unknown | + + + | Race | Unknown | + + + | Ethnic Group | Unknown | + + + Author + + + | Author | [facility] | | | and [place] | + + + | Organization | [facility] | | | [...] Team Providers + +------+ + | Care Certified Professional Coder Name | Role | Phone | + +------+ + PCP | Unavailable | + +------+ + Encounter Details +--------+ + + + + | Date | Type | Department | Care Team | Description | +--------+ + + + + | 04/25/ | [facility] | [facility] | Katya Ho | | | 2007 | Encounter | MED CTR XRAY [address] | MD Lashaun [address] | | | | | [place] | [address] [place] | | | | | [place] [address] | [place] [address] | | | | | [phone] | [phone] | | | | | | | [...]
--- OUTSIDE RECORDS SUMMARY | ~2019-08-10 | XMS | Encounter Summary ---
Demographics + + + | Address | [address] | | | [place] [address] | + + + | Home Phone | | + + + | Preferred Language | Unknown | + + + | Marital Status | Single | + + + | Samaritan Affiliation | Unknown | + + + | Race | Unknown | + + + | Ethnic Group | Unknown | + + + Author + + + | Author | [facility] | | | and [place] | + + + | Organization | [facility] | | | [...] Team Providers + +------+ + | Care Bung Sewer Name | Role | Phone | + +------+ + PCP | Unavailable | + +------+ + Encounter Details +--------+ + + + + | Date | Type | Department | Care Team | Description | +--------+ + + + + | 07/19/ | Hospital | [facility] | Betsy [place]leton | | | 2007 | Encounter | MED CTR EMERGENCY | MD Sindi King | | | | | CENTER [address] | [place], | | | | | [place] | [place] [address] | | | | | [address] | [phone] | | | | | [phone] | | | +--------+ + + + [...]
--- OUTSIDE RECORDS SUMMARY | ~2019-08-10 | XMS | Encounter Summary ---
Demographics + + + | Address | [address] | | | [place] [address] | + + + | Home Phone | | + + + | Preferred Language | Unknown | + + + | Marital Status | Single | + + + | Holiness Affiliation | Unknown | + + + | Race | Unknown | + + + | Ethnic Group | Unknown | + + + Author + + + | Author | [facility] | | | and [place] | + + + | Organization | [facility] | | | [...] Team Providers + +------+ + | Care Life Advisor Name | Role | Phone | + +------+ + PCP | Unavailable | + +------+ + Encounter Details +--------+ + + + + | Date | Type | Department | Care Team | Description | +--------+ + + + + | 07/19/ | Hospital | [facility] | Betsy [place]leton | | | 2007 | Encounter | MED CTR EMERGENCY | MD Sindi King | | | | | CENTER [address] | [place], | | | | | [place] | [place] [address] | | | | | [address] | [phone] | | | | | [phone] | | | +--------+ + + + [...]
--- OUTSIDE RECORDS SUMMARY | ~2019-08-10 | XMS | Encounter Summary ---
Demographics + + + | Address | [address] | | | [place] [address] | + + + | Home Phone | | + + + | Preferred Language | Unknown | + + + | Marital Status | Single | + + + | Congregational Affiliation | Unknown | + + + | Race | Unknown | + + + | Ethnic Group | Unknown | + + + Author + + + | Author | [facility] | | | and [place] | + + + | Organization | [facility] | | | and [...] Team Providers + +------+ + | Care Fern Gatherer Name | Role | Phone | + +------+ + PCP | Unavailable | + +------+ + Encounter Details +--------+ + + + + | Date | Type | Department | Care Team | Description | +--------+ + + + + | 12/07/ | [facility] | [facility] | Matthew Ho | | | 2004 | Encounter | MED CTR XRAY [address] | MD Chandler Need | | | | | [place] | updated address | | | | | [place] [address] | | | | | | [phone] | | | +--------+ + + + [...]
--- OUTSIDE RECORDS SUMMARY | ~2019-08-10 | XMS | Encounter Summary ---
Demographics + + + | Address | [address] | | | [place] [address] | + + + | Home Phone | | + + + | Preferred Language | Unknown | + + + | Marital Status | Single | + + + | Oriental Orthodox Affiliation | Unknown | + + + | Race | Unknown | + + + | Ethnic Group | Unknown | + + + Author + + + | Author | [facility] | | | and [place] | + + + | Organization | [facility] | | | [...] Team Providers + +------+ + | Care Extermination Inspector Name | Role | Phone | + +------+ + PCP | Unavailable | + +------+ + Encounter Details +--------+ + + + + | Date | Type | Department | Care Team | Description | +--------+ + + + + | 11/15/ | Hospital | [facility] | Soren, | | | 2007 | Encounter | MED CTR EMERGENCY | Chandler James MD [address] | | | | | CENTER [address] | [place] | | | | | [place] | [place] [address] | | | | | [address] | [phone] | | | | | [phone] | | | +--------+ + + + [...]
--- OUTSIDE RECORDS SUMMARY | ~2019-08-10 | XMS | Encounter Summary ---
Demographics + + + | Address | [address] | | | [place] [address] | + + + | Home Phone | | + + + | Preferred Language | Unknown | + + + | Marital Status | Single | + + + | Gnosticist Affiliation | Unknown | + + + | Race | Unknown | + + + | Ethnic Group | Unknown | + + + Author + + + | Author | [facility] | | | and [place] | + + + | Organization | [facility] | | [...] Team Providers + +------+ + | Care Therapeutic Dietitian Name | Role | Phone | + [...] + + | 05/10/ | Office | [facility] | Fabien Dawn | Cellulitis of right | | 2018 | Visit | CARE [address] | MD Sixto [address] | hand (Primary Dx) | | | | [place] | [place] | | | | | [address] | [address] | | | | | [phone] | | | +--------+---------+ + + + [...] or wheezing, stop Keflex and report to [facility] emergency room. Take Naprosyn 500 mg, [...] 2 days on antibiotics Date Last Reviewed: 11/05/201519997768-0997 [employer]. [address] [place] [address]. All righ ts reserved. This information is [...] or wheezing, stop Keflex and report to [facility] emergency room. Take Naprosyn 500 mg, [...] The note may have been dictated using [employer] voice recognition software. It may have not [...] starting 3 days ago. 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 He [...]
--- OUTSIDE RECORDS SUMMARY | ~2019-08-10 | XMS | Encounter Summary ---
Demographics + + + | Address | [address] | | | [place] [address] | + + + | Home Phone | | + + + | Preferred Language | Unknown | + + + | Marital Status | Single | + + + | Adventist Affiliation | Unknown | + + + | Race | Unknown | + + + | Ethnic Group | Unknown | + + + Author + + + | Author | [facility] | | | and [place] | + + + | Organization | [facility] | | [...] Team Providers + +------+ + | Care Partner Name | Role | Phone | + +------+ + PCP | Unavailable | + +------+ + Encounter Details +--------+ + + + + | Date | Type | Department | Care Team | Description | +--------+ + + + + | 09/04/ | Hospital | [facility] | Betsy [place]leton | | | 2007 | Encounter | MED CTR EMERGENCY | MD Sindi King | | | | | CENTER [address] | [place], | | | | | [place] | [place] [address] | | | | | [address] | [phone] | | | | | [phone] | | | +--------+ + + + [...]
--- OUTSIDE RECORDS SUMMARY | ~2019-08-10 | XMS | Encounter Summary ---
Demographics + + + | Address | [address] | | | [place] [address] | + + + | Home Phone | | + + + | Preferred Language | Unknown | + + + | Marital Status | Single | + + + | Faith Affiliation | Unknown | + + + [...] Team Providers + +------+ + | Care Printed Circuit Boards Solder Leveler Name | Role | Phone | + +------+ + PCP | Unavailable | + +------+ + Encounter Details +--------+ + + + + | Date | Type | Department | Care Team | Description | +--------+ + + + + | 11/03/ | Hospital | [facility] | | | | 2005 | Encounter | MED CTR XRAY [address] | | | | | | [place] | | | | | | [place] [address] | | | | | | [phone] | | | +--------+ + + + [...]
--- OUTSIDE RECORDS SUMMARY | ~2019-08-10 | XMS | Encounter Summary ---
Demographics + + + | Address | [address] | | | [place] [address] | + + + | Home Phone | | + + + | Preferred Language | Unknown | + + + | Marital Status | Single | + + + | Restoration Affiliation | Unknown | + + + | Race | Unknown | + + + | Ethnic Group | Unknown | + + + Author + + + | Author | [facility] | | | and [place] | + + + | Organization | [facility] | | | and [...] Team Providers + +------+ + | Care Gage Designer Name | Role | Phone | + +------+ + PCP | Unavailable | + +------+ + Encounter Details +--------+ + + + + | Date | Type | Department | Care Team | Description | +--------+ + + + + | 11/03/ | Hospital | [facility] | | | | 2005 | Encounter | MED CTR XRAY [address] | | | | | | [place] | | | | | | [place] [address] | | | | | | [phone] | | | +--------+ + + + [...]
--- OUTSIDE RECORDS SUMMARY | ~2019-08-10 | XMS | Encounter Summary ---
Demographics + + + | Address | [address] | | | [place] [address] | + + + | Home Phone | | + + + | Preferred Language | Unknown | + + + | Marital Status | Single | + + + | Caodaism Affiliation | Unknown | + + + [...] Team Providers + +------+ + | Care Machine Assembler For Puller Over Name | Role | Phone | + +------+ + PCP | Unavailable | + +------+ + Encounter Details +--------+ + + + + | Date | Type | Department | Care Team | Description | +--------+ + + + + | 07/13/ | Hospital | [facility] | | | | 1992 | Encounter | MED CTR EMERGENCY | | | | | | CENTER [address] | | | | | | [place] | | | | | | [address] | | | | | | [phone] | | | +--------+ + + + [...]
--- OUTSIDE RECORDS SUMMARY | ~2019-08-10 | XMS | Clinical Summary ---
Demographics + + + | Address | [address] | | | [place] [address] | + + + | Home Phone | | + + + | Preferred Language | Unknown | + + + | Marital Status | Single | + + + | Latter-Day Affiliation | Unknown | + + + | Race | Unknown | + + + | Ethnic Group | Unknown | + + + Author + + + | Author | [facility] | | | and [place] | + + + | Organization | [facility] | | [...] Team Providers + +------+ + | Care Spooler Operator Automatic Name | Role | Phone | + [...] | [employer] | [facility] | [id number] | 05/11/19 | [phone] | | Medica [...] | 1971 | [phone] | [place] [address] | | | dirk | | | 5 (Home) | | + +--------+ +--------+ + + Advance Directives + + + + + | Type | Date Recorded | Patient | Explanation | | | | Wire Communications Engineer | | + + + + + | Power of | | | | | Abattoir Manager | | | | + + + + + | Advance | | | | | Directive | | | | + + + + +
--- OUTSIDE RECORDS SUMMARY | ~2019-08-10 | XMS | Encounter Summary ---
Demographics + + + | Address | [address] | | | [place] [address] | + + + | Home Phone | | + + + | Preferred Language | Unknown | + + + | Marital Status | Single | + + + | Adventism Affiliation | Unknown | + + + | Race | Unknown | + + + | Ethnic Group | Unknown | + + + Author + + + | Author | [facility] | | | and [place] | + + + | Organization | [facility] | | | and [...] Team Providers + +------+ + | Care Method Consultant Name | Role | Phone | + +------+ + PCP | Unavailable | + +------+ + Encounter Details +--------+ + + + + | Date | Type | Department | Care Team | Description | +--------+ + + + + | 08/02/ | Hospital | [facility] | | | | 2007 | Encounter | MED CTR EMERGENCY | | | | | | CENTER [address] | | | | | | [place] | | | | | | [address] | | | | | | [phone] | | | +--------+ + + + [...]
--- OUTSIDE RECORDS SUMMARY | ~2019-08-10 | XMS | Encounter Summary ---
Demographics + + + | Address | [address] | | | [place] [address] | + + + | Home Phone | | + + + | Preferred Language | Unknown | + + + | Marital Status | Single | + + + | Advent Affiliation | Unknown | + + + [...] Team Providers + +------+ + | Care Apartment House Manager Name | Role | Phone | + +------+ + PCP | Unavailable | + +------+ + Encounter Details +--------+ + + + + | Date | Type | Department | Care Team | Description | +--------+ + + + + | 02/16/ | Hospital | [facility] | [facility]etsy [place] | | | 2007 | Encounter | MED CTR EMERGENCY | MD Sindi King | | | | | CENTER [address] | [place], | | | | | [place] | [place] [address] | | | | | [address] | [phone] | | | | | [phone] | | | +--------+ + + + [...]
--- OUTSIDE RECORDS SUMMARY | ~2019-08-10 | XMS | Clinical Summary ---
Demographics + + + | Address | [address] | | | [place] [address] | + + + | Home Phone | | + + + | Preferred Language | Unknown | + + + | Marital Status | Single | + + + | Gnosticist Affiliation | Unknown | + + + | Race | Unknown | + + + | Ethnic Group | Unknown | + + + Author + + + | Author | [facility] | | | and [place] | + + + | Organization | [facility] | | [...] Team Providers + +------+ + | Care Steam Powerplant Supervisor Name | Role | Phone | + [...] | [facility] [facility] | [facility] | [id number] | 05/11/19 | [phone] | | Medica [...] | 1971 | [phone] | [place] [address] | | | dirk | | | 5 (Home) | | + +--------+ +--------+ + + Advance Directives + + + + + | Type | Date Recorded | Patient | Explanation | | | | 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
--- OUTSIDE RECORDS SUMMARY | ~2019-08-10 | XMS | Encounter Summary ---
Demographics + + + | Address | [address] | | | [place] [address] | + + + | Home Phone | | + + + | Preferred Language | Unknown | + + + | Marital Status | Single | + + + | Baptist Affiliation | Unknown | + + + | Race | Unknown | + + + | Ethnic Group | Unknown | + + + Author + + + | Author | [facility] | | | and [place] | + + + | Organization | [facility] | | | and [...] Team Providers + +------+ + | Care It Security Specialist Name | Role | Phone | + +------+ + PCP | Unavailable | + +------+ + Encounter Details +--------+ + + + + | Date | Type | Department | Care Team | Description | +--------+ + + + + | 06/26/ | [facility] | [facility] | Paul Cummins | | | 2006 | Encounter | MED CTR EMERGENCY | MD [address] | | | | | CENTER [address] | [place] | | | | | [place] | [place] [address] | | | | | [address] | [phone] | | | | | [phone] | | | +--------+ + + + [...]
--- OUTSIDE RECORDS SUMMARY | ~2019-08-10 | XMS | Encounter Summary ---
Demographics + + + | Address | [address] | | | [place] [address] | + + + | Home Phone | | + + + | Preferred Language | Unknown | + + + | Marital Status | Single | + + + | Christianity Affiliation | Unknown | + + + | Race | Unknown | + + + | Ethnic Group | Unknown | + + + Author + + + | Author | [facility] | | | and [place] | + + + | Organization | [facility] | | | [...] Providers + +------+ + | Care Food Service Hotel Runner Name | Role | Phone | + +------+ + PCP | Unavailable | + +------+ + Encounter Details +--------+ + + + + | Date | Type | Department | Care Team | Description | +--------+ + + + + | 02/03/ | [facility] | [facility] | Matthew Ho | | | 2004 | Encounter | MED CTR XRAY [address] | [address] [place] | | | | | [place] | updated address | | | | | [place] [address] | | | | | | [phone] | | | +--------+ + + + [...]
--- OUTSIDE RECORDS SUMMARY | ~2019-08-10 | XMS | Encounter Summary ---
Demographics + + + | Address | [address] | | | [place] [address] | + + + | Home Phone | | + + + | Preferred Language | Unknown | + + + | Marital Status | Single | + + + | Baptist Affiliation | Unknown | + + + | Race | Unknown | + + + | Ethnic Group | Unknown | + + + Author + + + | Author | [facility] | | | and [place] | + + + | Organization | [facility] | | [...] Team Providers + +------+ + | Care Regulatory Affairs Consultant Name | Role | Phone | + +------+ + PCP | Unavailable | + +------+ + Encounter Details +--------+ + + + + | Date | Type | Department | Care Team | Description | +--------+ + + + + | 11/15/ | Hospital | [facility] | [place], | | | 2007 | Encounter | MED CTR EMERGENCY | Chandler James MD [address] | | | | | CENTER [address] | [place] | | | | | [place] | [place] [address] | | | | | [address] | [phone] | | | | | [phone] | | | +--------+ + + + [...]
--- OUTSIDE RECORDS SUMMARY | ~2019-08-10 | XMS | Encounter Summary ---
Demographics + + + | Address | [address] | | | [place] [address] | + + + | Home Phone | | + + + | Preferred Language | Unknown | + + + | Marital Status | Single | + + + | Jew Affiliation | Unknown | + + + | Race | Unknown | + + + | Ethnic Group | Unknown | + + + Author + + + | Author | [facility] | | | and [place] | + + + | Organization | [facility] | | | [...] Team Providers + +------+ + | Care Sales And Service Technician Name | Role | Phone | + +------+ + PCP | Unavailable | + +------+ + Encounter Details +--------+ + + + + | Date | Type | Department | Care Team | Description | +--------+ + + + + | 08/02/ | Hospital | [facility] | | | | 2007 | Encounter | MED CTR EMERGENCY | | | | | | CENTER [address] | | | | | | [place] | | | | | | [address] | | | | | | [phone] | | | +--------+ + + + [...]
--- OUTSIDE RECORDS SUMMARY | ~2019-08-10 | XMS | Encounter Summary ---
Demographics + + + | Address | [address] | | | [place] [address] | + + + | Home Phone | | + + + | Preferred Language | Unknown | + + + | Marital Status | Single | + + + | Yarsani Affiliation | Unknown | + + + | Race | Unknown | + + + | Ethnic Group | Unknown | + + + Author + + + | Author | [facility] | | | and [place] | + + + | Organization | [facility] | | | [...] Team Providers + +------+ + | Care Broker Associate Name | Role | Phone | + +------+ + PCP | Unavailable | + +------+ + Encounter Details +--------+ + + + + | Date | Type | Department | Care Team | Description | +--------+ + + + + | 12/07/ | [facility] | [facility] | Matthew Ho | | | 2004 | Encounter | MED CTR XRAY [address] | [address] | | | | | [place] | updated address | | | | | [place] [address] | | | | | | [phone] | | | +--------+ + + + [...]
--- OUTSIDE RECORDS SUMMARY | ~2019-08-10 | XMS | Encounter Summary ---
Demographics + + + | Address | [address] | | | [place] [address] | + + + | Home Phone | | + + + | Preferred Language | Unknown | + + + | Marital Status | Single | + + + | Cheondoism Affiliation | Unknown | + + + | Race | Unknown | + + + | Ethnic Group | Unknown | + + + Author + + + | Author | [facility] | | | and [place] | + + + | Organization | [facility] | | | and [...] Providers + +------+ + | Care Sales Correspondent Name | Role | Phone | + +------+ + PCP | Unavailable | + +------+ + Encounter Details +--------+ + + + + | Date | Type | Department | Care Team | Description | +--------+ + + + + | 02/03/ | [facility] | [facility] | Matthew Ho | | | 2004 | Encounter | MED CTR XRAY [address] | [address] | | | | | [place] | updated address | | | | | [place] [address] | | | | | | [phone] | | | +--------+ + + + [...]
--- OUTSIDE RECORDS SUMMARY | ~2019-08-10 | XMS | Encounter Summary ---
Demographics + + + | Address | [address] | | | [place] [address] | + + + | Home Phone [...] Team Providers + +------+ + | Care Oyster Farmer Name | Role | Phone | + +------+ + PCP | Unavailable | + +------+ + Encounter Details +--------+ + + + + | Date | Type | Department | Care Team | Description | +--------+ + + + + | 11/11/ | Hospital | [facility] | | | | 1990 | Encounter | MED CTR EMERGENCY | | | | | | CENTER [address] | | | | | | [place] | | | | | | [address] | | | | | | [phone] | | | +--------+ + + + [...]
--- OUTSIDE RECORDS SUMMARY | ~2019-08-10 | XMS | Encounter Summary ---
Demographics + + + | Address | [address] | | | [place] [address] | + + + | Home Phone [...] Author + + + | Author | [facility] | | | and [place] | + + + | Organization | [facility] | | | [...] Team Providers + +------+ + | Care Meat Boner Name | Role | Phone | + +------+ + PCP | Unavailable | + +------+ + Encounter Details +--------+ + + + + | Date | Type | Department | Care Team | Description | +--------+ + + + + | 11/11/ | Hospital | [facility] | | | | 1990 | Encounter | MED CTR EMERGENCY | | | | | | CENTER [address] | | | | | | [place] | | | | | | [address] | | | | | | [phone] | | | +--------+ + + + [...]
--- OUTSIDE RECORDS SUMMARY | ~2019-08-10 | XMS | Encounter Summary ---
Demographics + + + | Address | [address] | | | [place] [address] | + + + | Home Phone | | + + + | Preferred Language | Unknown | + + + | Marital Status | Single | + + + | Christian Affiliation | Unknown | + + + | Race | Unknown | + + + | Ethnic Group | Unknown | + + + Author + + + | Author | [facility] | | | and [place] | + + + | Organization | [facility] | | | [...] Team Providers + +------+ + | Care Vp Genetic Name | Role | Phone | + +------+ + PCP | Unavailable | + +------+ + Encounter Details +--------+ + + + + | Date | Type | Department | Care Team | Description | +--------+ + + + + | 02/16/ | Hospital | [facility] | Betsy [place]leton | | | 2007 | Encounter | MED CTR EMERGENCY | MD Sindi King | | | | | CENTER [address] | [place], | | | | | [place] | [place] [address] | | | | | [address] | [phone] | | | | | [phone] | | | +--------+ + + + [...]
--- OUTSIDE RECORDS SUMMARY | ~2019-08-10 | XMS | Encounter Summary ---
Demographics + + + | Address | [address] | | | [place] [address] | + + + | Home Phone | | + + + | Preferred Language | Unknown | + + + | Marital Status | Single | + + + | Orthodox Affiliation | Unknown | + + + | Race | Unknown | + + + | Ethnic Group | Unknown | + + + Author + + + | Author | [facility] | | | and [place] | + + + | Organization | [facility] | | | [...] Team Providers + +------+ + | Care Lyric Writer Name | Role | Phone | + +------+ + PCP | Unavailable | + +------+ + Encounter Details +--------+ + + + + | Date | Type | Department | Care Team | Description | +--------+ + + + + | 06/26/ | [facility] | [facility] | Paul Cummins | | | 2006 | Encounter | MED CTR EMERGENCY | MD [place] [address] | | | | | CENTER [address] | [place] | | | | | [place] | [place] [address] | | | | | [address] | [phone] | | | | | [phone] | | | +--------+ + + + [...]
--- OUTSIDE RECORDS SUMMARY | 2019-08-10 07:56 | XMS ---
PreManage Notification: EMERALD VACA Security Sanitor Events No recent Security Events currently on file CRITERIA MET - Group Notification - [facility] - Has Care Guidelines CARE PROVIDERS DEWAYNE BAIRD Physician Sample Shoe Inspector And Reworker Current PHONE: [phone] JOHNSON MESSER Physician Sample Shoe Inspector And Reworker Current PHONE: Unknown Heidi has no Care Guidelines for this patient. Care History Medical/Surgical 03/14/2018 [facility] - [facility] CALLED PATIENT 2X LEFT A VOICEMAIL. - PATIENT NEEDS TO APPLY FOR MEDICAL BENEFITS- PLEASE CONTACT MARYAN EXT [phone] TO HAVE PATIENT APPLY FOR BENEFITS. - PATIENT DOES NOT HAVE A PCP - PLEASE REFER PATIENT TO [facility] FOR FOLLOW UP - TO ESTABLISH CARE. - W SENT NO PCP LETTER TO PATIENT. E.D. VISIT COUNT (12 MO.) 2 RICARDA Plata TOTAL 2 NOTE: Visits indicate total known visits. 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
[2019-08-10] MEDS ORDERED: CLINDAMYCIN HC300 MG PO (09:03)
== END 2019-08-10 09:51 | disposition home or self-care (01) ==
LOC: ED 07:53
DX: L03.011 Cellulitis of right finger (principal); Z20.2 Contact with and (suspected) exposure to infections with a predominantly sexual mode of transmission; F17.200 Nicotine dependence, unspecified, uncomplicated; Z88.1 Allergy status to other antibiotic agents
CPT/HCPCS: 73140; 86592; 86703; 87491; 87591; 99283-25

== ENCOUNTER 2022-07-05 09:32 | Emergency (ER) | payer OTHER ==
[~2022-07-05] VITALS: Ht 185.4 cm; Wt 82.5 kg
[~2022-07-05 09:32] MED LIST changes: +CLINDAMYCIN HC300 MG PO
--- OUTSIDE RECORDS SUMMARY | 2022-07-05 09:38 | XMS ---
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 Care History Medical/Surgical 03/14/2018 [facility] - W CALLED PATIENT 2X LEFT A VOICEMAIL. - PATIENT NEEDS TO APPLY FOR MEDICAL BENEFITS- PLEASE CONTACT MARYAN EXT [phone] TO HAVE PATIENT APPLY FOR BENEFITS. - PATIENT DOES NOT HAVE A PCP - PLEASE REFER PATIENT TO [facility] FOR FOLLOW UP - TO ESTABLISH CARE. - [facility] SENT NO PCP LETTER TO PATIENT. Gina VISIT COUNT (12 MO.) [address] RIC[place]DA [place] TOTAL 3 NOTE: Visits indicate total known visits. ED/UCC VISIT TRACKING (12 MO.) 07/05/2022 09:33 [facility] [place] TYPE: Emergency COMPLAINT: - SHORTNESS OF BREATH 03/17/2022 07:10 [facility] TYPE: Emergency DIAGNOSES: - Pain in left ankle and joints of left foot - Pain in right ankle and joints of right foot - Pain in right foot - RIGHT ANKLE PAIN ABD HERNIA 11[facility]21 13:[facility] DIAGNOSES: - Cellulitis of unspecified part of limb - Leg Swelling - swollen feet poss infection pain in hands INPATIENT VISIT TRACKING (12 MO.) No inpatient visits to display in this time frame [email or web address]
[2022-07-05 09:55] VITALS: BP 123/74
== END 2022-07-05 09:55 | disposition home or self-care (01) ==
LOC: ED 09:32
DX: Z02.89 Encounter for other administrative examinations (principal); B19.20 Unspecified viral hepatitis C without hepatic coma; F17.200 Nicotine dependence, unspecified, uncomplicated
CPT/HCPCS: 99283